=== PATIENT | female | born 1950 | race Caucasian/White ===

== ENCOUNTER → 2017-09-20 | Outpatient (CLI) | payer MEDICARE, OTHER ==
[~2017-09-20] MED LIST: FOLVITE1 MG PO; Keflex PO; METHOTREXATE2.5 MG PO; NIFEREX-1501 CAPSULE PO; NORVASC5 MG PO; Vicodin,Lortab 5/500 PO
== END | disposition home or self-care (01) ==
LOC: CDC 11:48
DX: Z01.810 Encounter for preprocedural cardiovascular examination (principal); N18.4 Chronic kidney disease, stage 4 (severe); I45.10 Unspecified right bundle-branch block; I44.4 Left anterior fascicular block; I44.0 Atrioventricular block, first degree; R94.31 Abnormal electrocardiogram [ECG] [EKG]
CPT/HCPCS: 93000

== ENCOUNTER 2017-12-09 04:59 | Day surgery (SDC) | payer OTHER ==
[~2017-12-09] VITALS: Ht 154.9 cm; Wt 86.1 kg
[~2017-12-09 04:59] MED LIST changes: +B-COMPLEX-VITA1 EACH PO; +CLARITIN,ALAVAR10 MG PO; +DIOVAN160 MG PO; +NORVASC10 MG PO; -NORVASC5 MG PO; +ROCALTROL0.25 MCG PO; +SUPER CALCIUM600 MG PO; +TYLENOL REGULA325 MG PO; +VITAMIN B12-FO1 EACH PO; +VITAMIN D-32000 UNI2 PO
[2017-12-09 05:56] LABS: HEMATOCRIT 34.5 % (36.0-46.0); HEMOGLOBIN 10.9 G/DL (11.9-15.5); MCH 31.7 PG (29.0-34.0); MCHC 31.6 G/DL (30.0-36.0); MCV 100.3 FL (83-99); PLATELET COUNT 272 K/uL (156-360); RBC DIS.WIDTH-CV 12.9 % (11.8-14.6); RBC DIS.WIDTH-SD 48.1 % (39-53); RED BLOOD COUNT 3.44 M/uL (3.80-5.20); WHITE BLOOD COUNT 12.5 K/uL (4.1-10.2)
[2017-12-09 06:08] LABS: CHLORIDE 110 mEq/L (99-109); POTASSIUM 3.9 mEq/L (3.7-5.4); SODIUM 142 mEq/L (136-147)
[2017-12-09 06:10] LABS: GLUCOSE 94 mg/dL (70-99)
[2017-12-09 06:14] LABS: CREATININE 4.2 mg/dL (0.6-1.3); GFR ESTIMATE (CALCULATED) 11 mL/min/
[2017-12-09 06:15] LABS: UREA NITROGEN (BUN) 30 mg/dL (9-23)
[2017-12-09 06:18] VITALS: BP 144/71
[2017-12-09] MEDS ORDERED: NORCO 5/3251 TABLET PO (09:30)
[2017-12-09 11:12] VITALS: BP 130/68
[2017-12-09 12:11] VITALS: BP 140/62
== END 2017-12-09 12:14 | disposition home or self-care (01) ==
LOC: SDC 04:59
PROVIDERS: Surgery
DX: I12.0 Hypertensive chronic kidney disease with stage 5 chronic kidney disease or end stage renal disease (principal); E11.22 Type 2 diabetes mellitus with diabetic chronic kidney disease; K66.0 Peritoneal adhesions (postprocedural) (postinfection); F17.210 Nicotine dependence, cigarettes, uncomplicated; N18.6 End stage renal disease; Z99.2 Dependence on renal dialysis; R94.31 Abnormal electrocardiogram [ECG] [EKG]; D64.9 Anemia, unspecified; K21.0 Gastro-esophageal reflux disease with esophagitis; E21.1 Secondary hyperparathyroidism, not elsewhere classified; F41.1 Generalized anxiety disorder
CPT/HCPCS: 80048; 85027; 86704; 86706; 87340; C1750; J0131; J0330; J0690; J1170; J2250; J2405; J2550; J2765; J3010; S0020